=== PATIENT | male | born 1945 ===

== ENCOUNTER 2020-07-07 18:22 | Inpatient (IN) | payer MEDICARE ==
[2020-07-07] MEDS ORDERED: MELATONIN 5 MG TAB PO PRN (21:21)
[2020-07-07] MEDS: OMEGA-3 FATTY ACIDS/FISH OIL 1 GRAM CAP PO SCH (23:54)
[2020-07-07] MEDS: traZODone 50 MG TAB PO SCH (23:54)
--- NOTE | 2020-07-08 08:16 | History and Physical Report ---
GP History & Physical - History of Present Illness Date of admission: 07/08/20 Date of Examination: 07/08/20 Reason for Admission: Danger to self, Severe anxiety/depression History of Present Illness: HPI Patient has dysarthria hence difficulty to understand, patient is a 74-year-old, retired male with past psychiatric history of depression and has past medical history of hypertension, JULIA, diabetes, spinocerebellar ataxia type I and chronic pain who presented to another hospital [facility] with chief complaint of suicidal examination. Patient reported his been have suicidal thoughts for several months, but does not wish to elaborate at the other facility. Today patient reports that he has been feeling depressed but is not suicidal, reported at age of 67 who was diagnosed with an incurable disease that only one provider in [place] knows how to manage, report most of his mental health problems is due to his medical issues but denies wanting to kill self or hurt self. PAST PSYCHIATRIC HISTORY: Diagnoses: Depression Suicide attempts or Self-harm behavior Prior psychiatric hospitalizations Substance Abuse history: Previous psychiatric medications tried: Yes Outpatient treatment: Yes PAST MEDICAL HISTORY: Type 2 diabetes, CAD, hypertension, JULIA, spinocerebellar ataxia type I Family Psychiatric History: None reported or documented SOCIAL HISTORY Marital Status: Living Arrangements: With Employment Status: Retired Access to guns/weapons: yes at home Education: History of Abuse: none reported Legal History: guero REVIEW OF SYSTEMS Constitutional: Negative for weight loss ENT: Negative for stridor Respiratory: Negative for cough or hemoptysis All other systems reviewed and are negative MENTAL STATUS EXAMINATION General Appearance and Behavior: Age appropriate, good hygiene, wearing appropriate clothes,, good eye contact Cooperation: Participating/engaged, but Guarded Psychomotor Behavior: Psychomotor normal Mood: depressed Affect and affective range: irritable, labile Thought Process: illogical Thought Content: hopelessness, helplessness Speech: Normal rate, volume and rythm Intellectual Functioning: Average Suicidal Ideation: SI Homicidal Ideation: Denies HI Impulse Control: Impaired Insight and Judgment: Limited insight and judgment Memory: Normal Attention: Normal Orientation: Alert, oriented Assessment and Plan - Psychiatric problem (1) MDD (major depressive disorder) Current Visit: Yes Status: Acute f32.9 Treatment Plan We will restart on medication Patient admitted for inpatient psychiatric evaluation, medication adjustment and close monitoring The patient's behavior, mood, sleep and appetite will be closely monitored. Patient enrolled in individual and group therapeutic sessions and encouraged to attend. Patient provided with a safe and structured environment. Patient's physical health needs will be addressed by the Hospitalist. Hospitalist Consulted Labs including CBC, CMP, Lipid profile and Hemoglobin A1C levels ordered for baseline reference Social Assessment will be completed and the Centrifugal Extractor Operator will work with patient and family to ensure a suitable and safe disposition Medication adjustment will be made as clinically indicated Usual Wellness Mu-Ism/Preservation: - Start Trazodone 50 mg po QHS & 50 mg po QHS PRN between 10 PM & 2 AM for insomnia - Start Melatonin 5 mg po QHS to promote circadian rhythm - Start [place]-3 for brain health, reduce impulsivity, and as adjunctive treatment for mood disorder, continue upon discharge given overall benefits. - Start B1 prophylaxis with 200 mg po for 5 days The patient agreed on the treatment plan, understood the risk, benefit, alternative treatment, potential consequence of no treatment, and gave informed consent. Initial Certification Inpatient psych services: I certify that the inpatient psychiatric services are required for treatment that could reasonably be expected to improve the patient's condition. Estimated days: 7 Post hospital care: primary care provider, psychiatric provider Legal Status: Voluntary Patient Problems: Current Active Problems MDD (major depressive disorder) (Acute) Reaction to Hospitalization: Accepting Medications and Allergies Allergies Allergy/AdvReac Type Severity Reaction Status Date / Time No Known Allergies Allergy Verified 07/07/20 18:26 Home Medications Medication Instructions Recorded Confirmed Last Taken Type ALPRAZolam [Xanax TAB] 0.25 mg PO Q6HR PRN 07/08/20 07/08/20 Unknown History Aspirin [Adult Aspirin] 81 mg PO DAILY 07/08/20 07/08/20 Unknown History Atorvastatin [Lipitor] 40 mg PO HS 07/08/20 07/08/20 Unknown History Cyanocobalamin (Vitamin B-12) 1,000 mcg PO DAILY 07/08/20 07/08/20 Unknown History [Vitamin B-12] Ergocalciferol [Vitamin D2] 50,000 units PO QWEEK 07/08/20 07/08/20 Unknown History FLUoxetine [PROzac] 10 mg PO BID 07/08/20 07/08/20 Unknown History Glimepiride [Amaryl] 2 mg PO DAILY 07/08/20 07/08/20 Unknown History Metoprolol Xl [Metoprolol 25 mg PO Q48HR 07/08/20 07/08/20 Unknown History SUCCINATE ER TAB] Multivitamin Tab [Multiple Vitamin 1 tab PO DAILY 07/08/20 07/08/20 Unknown History TAB (Theragran)] Ropinirole HCl [rOPINIRole ER] 8 mg PO HS 07/08/20 07/08/20 Unknown History Vitamin E 1,000 mg PO DAILY 07/08/20 07/08/20 Unknown History Zolpidem [Ambien] 5 mg PO QHS PRN 07/08/20 07/08/20 Unknown History donepeziL [Aricept] 10 mg PO QHS 07/08/20 07/08/20 Unknown History hydroCHLOROthiazide [HCTZ] 25 mg PO DAILY 07/08/20 07/08/20 Unknown History metFORMIN XR [Glucophage XR] 500 mg PO BID 07/08/20 07/08/20 Unknown History oxyCODONE /ACETAMINOPHEN [Percocet 5 mg PO Q6HR PRN 07/08/20 07/08/20 Unknown History 5/325 mg] Active Meds: Active Medications Fish Oil ([place]-3 Fatty Acids/Fish Oil 1 Gram Cap) 2,000 mg PO BID [facility] Last Admin: 07/07/20 23:54 Dose: Not Given Documented by: Melatonin (Melatonin 5 Mg Tab) 5 mg PO QHS PRN PRN Reason: Sleep Trazodone HCl (Trazodone 50 Mg Tab) 50 mg PO QHS [facility] Last Admin: 07/07/20 23:54 Dose: Not Given Documented by: Results - Results Labs/Vitals: Laboratory Last Values POC Glucose 83 mg/dL (70-105) 07/08/20 05:57 Last Vital Signs Temp 98.8 F 07/07/20 23:05 Pulse 61 07/07/20 23:05 Resp 16 07/07/20 23:05 BP 117/58 07/07/20 23:05 Pulse Ox 93 07/07/20 23:05 Physical Examination - Constitutional Vitals: Vital Signs Temp Pulse Resp BP Pulse Ox 98.8 F 61 16 117/58 93 07/07/20 23:05 07/07/20 23:05 07/07/20 23:05 07/07/20 23:05 07/07/20 23:05 Temperature -Last 24 Hours Temperature 98.8 F Mental Status Exam - Vital signs Last Vital Signs Temp 98.8 F 07/07/20 23:05 Pulse 61 07/07/20 23:05 Resp 16 07/07/20 23:05 BP 117/58 07/07/20 23:05 Pulse Ox 93 07/07/20 23:05 Assessment and Plan - Psychiatric problem (1) MDD (major depressive disorder) Current Visit: Yes Status: Acute Physician Certification - Certification Statement Physician Certification Statement: This is an acknowledgement statement that RAFIQ GOMEZ is a 74 year old M who requires inpatient psychiatric admission for treatment which could reasonably be expected to improve the patient's condition for Estimated period of time patient will need to remain in the hospital: [ ] Plan for post-hospital care: [ ]
[2020-07-08] MEDS ORDERED: ALPRAZolam 0.25 MG TAB PO PRN (09:00)
[2020-07-08] MEDS: OMEGA-3 FATTY ACIDS/FISH OIL 1 GRAM CAP PO SCH ×3 (09:16→22:05)
[2020-07-08 09:29] LABS: Basophils % (Auto) 0.1 % (0.0-1.8); Eosinophils # (Auto) 0.1 K/mm3 (0.0-0.4); Eosinophils % (Auto) 1.3 % (0.0-4.3); Hematocrit 44.3 % (35.5-45.6); Hemoglobin 15.3 gm/dl (11.8-15.2); Lymphocytes # (Auto) 1.6 K/mm3 (1.2-5.4); Lymphocytes % (Auto) 18.5 % (13.4-35.0); Mean Corpuscular HGB Conc 35 % (32-34); Mean Corpuscular Volume 92 fl (84-94); Monocytes # (Auto) 0.7 K/mm3 (0.0-0.8); Monocytes % (Auto) 8.1 % (0.0-7.3); Platelet Count 207 K/mm3 (140-440); Red Blood Count 4.82 M/mm3 (3.65-5.03); Red Cell Distribution Width 13.6 % (13.2-15.2)
[2020-07-08 09:46] LABS: Alanine Aminotransferase 35 units/L (7-56); Albumin 3.8 g/dL (3.9-5); BUN/Creatinine Ratio 16; Blood Urea Nitrogen 14 mg/dL (9-20); HDL Cholesterol 38 mg/dL (40-59); Hemolysis Index 4; LDL Cholesterol,Direct 55 mg/dL (50-130)
[2020-07-08] MEDS ORDERED: FLUoxetine 10 MG TAB PO SCH (10:00)
--- NOTE | 2020-07-08 15:16 | Consultation ---
History of Present Illness - Reason for Consult Consult date: 07/08/20 Management of medical conditions - History of Present Illness As per lisa. He is [id number], retired male with past psychiatric history of depression and has past medical history of hypertension, JULIA, diabetes, spinocerebellar ataxia type I and chronic pain who presented to another [facility] with chief complaint of suicidal examination. Patient reported his been have suicidal thoughts for several months, but does not wish to elaborate at the other facility. Today patient reports that he has been feeling depressed but is not suicidal, reported at age of 67 who was diagnosed with an incurable disease that only one provider in [place] knows how to manage, report most of his mental health problems is due to his medical issues but denies wanting to kill self or hurt self. Now admitted to psych unit for management. Home medications reviewed. Labs reviewed. Past History Past Medical History: diabetes, hypertension, other (JULIA) Medications and Allergies Allergies Allergy/AdvReac Type Severity Reaction Status Date / Time No Known Allergies Allergy Verified 07/07/20 18:26 Home Medications Medication Instructions Recorded Confirmed Last Taken Type ALPRAZolam [Xanax TAB] 0.25 mg PO Q6HR PRN 07/08/20 07/08/20 Unknown History Aspirin [Adult Aspirin] 81 mg PO DAILY 07/08/20 07/08/20 Unknown History Atorvastatin [Lipitor] 40 mg PO HS 07/08/20 07/08/20 Unknown History Cyanocobalamin (Vitamin B-12) 1,000 mcg PO DAILY 07/08/20 07/08/20 Unknown History [Vitamin B-12] Ergocalciferol [Vitamin D2] 50,000 units PO QWEEK 07/08/20 07/08/20 07/02/20 10:00 History FLUoxetine [PROzac] 10 mg PO BID 07/08/20 07/08/20 Unknown History Glimepiride [Amaryl] 2 mg PO DAILY 07/08/20 07/08/20 Unknown History Metoprolol Xl [Metoprolol 25 mg PO Q48HR 07/08/20 07/08/20 Unknown History SUCCINATE ER TAB] Multivitamin Tab [Multiple Vitamin 1 tab PO DAILY 07/08/20 07/08/20 Unknown History TAB (Theragran)] Ropinirole HCl [rOPINIRole ER] 8 mg PO HS 07/08/20 07/08/20 Unknown History Vitamin E 400 unit PO QDAY 07/08/20 07/08/20 Unknown History Zolpidem [Ambien] 5 mg PO QHS PRN 07/08/20 07/08/20 Unknown History donepeziL [Aricept] 10 mg PO QHS 07/08/20 07/08/20 Unknown History hydroCHLOROthiazide [HCTZ] 25 mg PO DAILY 07/08/20 07/08/20 Unknown History metFORMIN XR [Glucophage XR] 500 mg PO BID 07/08/20 07/08/20 Unknown History oxyCODONE /ACETAMINOPHEN [Percocet 5 mg PO Q6HR PRN 07/08/20 07/08/20 Unknown History 5/325 mg] Active Meds: Active Medications Alprazolam (Alprazolam 0.25 Mg Tab) 0.25 mg PO Q6H PRN PRN Reason: Anxiety Donepezil HCl (Donepezil 10 Mg Tab) 10 mg PO QHS [facility] Fish Oil ([place]-3 Fatty Acids/Fish Oil 1 Gram Cap) 2,000 mg PO BID [facility] Last Admin: 07/08/20 09:16 Dose: 2,000 mg Documented by: Fluoxetine HCl (Fluoxetine 10 Mg Tab) 10 mg PO DAILY [facility] Last Admin: 07/08/20 09:16 Dose: 10 mg Documented by: Melatonin (Melatonin 5 Mg Tab) 5 mg PO QHS PRN PRN Reason: Sleep Ropinirole HCl (Ropinirole 1 Mg Tab) 4 mg PO BID [facility] Trazodone HCl (Trazodone 50 Mg Tab) 50 mg PO QHS [facility] Last Admin: 07/07/20 23:54 Dose: Not Given Documented by: Review of Systems All systems: negative Exam - Constitutional Vitals: Temp Pulse Resp BP Pulse Ox 97.8 F 63 15 117/62 91 07/08/20 07:01 07/08/20 07:01 07/08/20 07:01 07/08/20 07:01 07/08/20 07:01 General appearance: Present: no acute distress, well-nourished - EENT Eyes: Present: PERRL ENT: hearing intact, clear oral mucosa - Neck Neck: Present: supple, normal ROM - Respiratory Respiratory effort: normal Respiratory: bilateral: CTA - Cardiovascular Heart Sounds: Present: S1 & S2. Absent: rub, click - Extremities Extremities: pulses symmetrical, No edema Peripheral Pulses: within normal limits - Abdominal General gastrointestinal: Present: soft, non-tender, non-distended, normal bowel sounds Male genitourinary: Present: normal - Integumentary Integumentary: Present: clear, warm, dry - Musculoskeletal Musculoskeletal: gait normal, strength equal bilaterally - Psychiatric Psychiatric: appropriate mood/affect, intact judgment & insight - Neurologic Neurologic: CNII-XII intact, moves all extremities Results - Labs CBC & Chem 7: 07/08/20 08:52 07/08/20 08:52 Labs: Abnormal lab results 07/08/20 07/08/20 07/08/20 Range/Units 08:52 08:52 08:52 Hgb 15.3 H (11.8-15.2) gm/dl MCHC 35 H (32-34) % [place] % (Auto) 8.1 H (0.0-7.3) % Seg Neutrophils % 72.0 H (40.0-70.0) % Sodium 136 L (137-145) mmol/L Glucose 177 H (75-100) mg/dL POC Glucose (70-105) mg/dL Hemoglobin A1c 6.7 H (4-6) % Albumin 3.8 L (3.9-5) g/dL Triglycerides 319 H (2-149) mg/dL HDL Cholesterol 38 L (40-59) mg/dL Vitamin B12 (211-911) pg/mL 07/08/20 07/08/20 Range/Units 08:52 10:42 Hgb (11.8-15.2) gm/dl MCHC (32-34) % [place] % (Auto) (0.0-7.3) % Seg Neutrophils % (40.0-70.0) % Sodium (137-145) mmol/L Glucose (75-100) mg/dL POC Glucose 194 H (70-105) mg/dL Hemoglobin A1c (4-6) % Albumin (3.9-5) g/dL Triglycerides (2-149) mg/dL HDL Cholesterol (40-59) mg/dL Vitamin B12 1097 H (211-911) pg/mL Assessment and Plan - Patient Problems (1) MDD (major depressive disorder) Current Visit: Yes Status: Acute Plan to address problem: Management as per psych (2) Hypertension Current Visit: Yes Status: Acute Plan to address problem: Monitor BP for now. (3) Diabetes mellitus Current Visit: Yes Status: Acute Plan to address problem: Hemoglobin A1c 6.7 Metformin 500 mg BID Hold glimepiride. Start on sliding scale insulin Diabetic diet (4) Morbid obesity Current Visit: Yes Status: Acute Plan to address problem: Diet and exercise advised
[2020-07-08] MEDS ORDERED: DEXTROSE 50% IN WATER (25GM) 50 ML SYRINGE IV PRN (15:17)
[2020-07-08] MEDS: INSULIN LISPRO 100 UNIT/ML SUB-Q SCH (16:20)
[2020-07-08] MEDS: rOPINIRole 1 MG TAB PO SCH (21:39)
[2020-07-08] MEDS: DONEPEZIL 10 MG TAB PO SCH (21:41)
[2020-07-08] MEDS: traZODone 50 MG TAB PO SCH (21:41)
[2020-07-08] MEDS ORDERED: metFORMIN XR 500MG TAB PO SCH (22:00)
[2020-07-08] MEDS ORDERED: ROPINIROLE HCL 6 MG PO SCH (22:00)
[2020-07-09] MEDS: INSULIN LISPRO 100 UNIT/ML SUB-Q SCH ×5 (03:55→22:11)
[2020-07-09] MEDS: metFORMIN XR 500MG TAB PO SCH ×2 (08:10→16:56)
--- NOTE | 2020-07-09 08:45 | Progress Note ---
Subjective Date of service: 07/09/20 Principal diagnosis: Major Depressive Disorder Subjective Comment: The patient was seen today. He is sitting in the dayroom. His speech is difficult to understand at times. He says he was admitted to [facility] for depression and suicidal thoughts. When asked about SI/HI, the patient did not initially answer, he replied "I want to go home." When asking the patient again he says, "no, I'm not. I'm not," but does verbalize some depression. He denies hallucinations of any kind. Reason for continued inpatient treatment: The patient was admitted for depression, SI for past two months and also expressed upon admission. Per documentation, the states the patient has also been noncompliant with his medication. The patient seems to say what he needs to say in order to get discharged. I feel it is safe to treat and monitor the patient a little longer to ensue medication compliance, and his safety upon discharge. REVIEW OF SYSTEMS Constitutional: Negative for weight loss ENT: Negative for stridor Respiratory: Negative for cough or hemoptysis All other systems reviewed and are negative MENTAL STATUS EXAMINATION General Appearance and Behavior: Age appropriate, good hygiene, wearing appropriate clothes, good eye contact Cooperation: Participating/engaged, but Guarded Psychomotor Behavior: Psychomotor normal Mood: depressed Affect and affective range: restricted Thought Process: goal directed Thought Content: None Speech: Normal rate, volume and rhythm Suicidal Ideation: Denies Homicidal Ideation: Denies Hallucinations: denies Delusions: None elicited Impulse Control: Impaired Insight and Judgment: Limited insight and judgment Memory: Normal Attention: Normal Orientation: Alert, oriented Assessment and Plan (1) MDD (major depressive disorder) Current Visit: Yes Status: Acute f32.9 Treatment Plan Patient admitted for inpatient psychiatric evaluation, medication adjustment and close monitoring The patient's behavior, mood, sleep and appetite will be closely monitored. Patient enrolled in individual and group therapeutic sessions and encouraged to attend. Patient provided with a safe and structured environment. Patient's physical health needs will be addressed by the Hospitalist. Hospitalist Consulted Labs including CBC, CMP, Lipid profile and Hemoglobin A1C levels ordered for baseline reference Social Assessment will be completed and the Youth Officer will work with patient and family to ensure a suitable and safe disposition Medication adjustment will be made as clinically indicated Increased Prozac 20mg po daily Usual Wellness [facility]an/Preservation: - Start Trazodone 50 mg po QHS & 50 mg po QHS PRN between 10 PM & 2 AM for insomnia - Start Melatonin 5 mg po QHS to promote circadian rhythm - Start [place]-3 for brain health, reduce impulsivity, and as adjunctive treatment for mood disorder, continue upon discharge given overall benefits. - Start B1 prophylaxis with 200 mg po for 5 days The patient agreed on the treatment plan, understood the risk, benefit, alternative treatment, potential consequence of no treatment, and gave informed consent. Estimated days: 7 Post hospital care: primary care provider, psychiatric provider Medications and Allergies Allergies Allergy/AdvReac Type Severity Reaction Status Date / Time No Known Allergies Allergy Verified 07/07/20 18:26 Home Medications Medication Instructions Recorded Confirmed Last Taken Type ALPRAZolam [Xanax TAB] 0.25 mg PO Q6HR PRN 07/08/20 07/08/20 Unknown History Aspirin [Adult Aspirin] 81 mg PO DAILY 07/08/20 07/08/20 Unknown History Atorvastatin [Lipitor] 40 mg PO HS 07/08/20 07/08/20 Unknown History Cyanocobalamin (Vitamin B-12) 1,000 mcg PO DAILY 07/08/20 07/08/20 Unknown History [Vitamin B-12] Ergocalciferol [Vitamin D2] 50,000 units PO QWEEK 07/08/20 07/08/20 07/02/20 10:00 History FLUoxetine [PROzac] 10 mg PO BID 07/08/20 07/08/20 Unknown History Glimepiride [Amaryl] 2 mg PO DAILY 07/08/20 07/08/20 Unknown History Metoprolol Xl [Metoprolol 25 mg PO Q48HR 07/08/20 07/08/20 Unknown History SUCCINATE ER TAB] Multivitamin Tab [Multiple Vitamin 1 tab PO DAILY 07/08/20 07/08/20 Unknown History TAB (Theragran)] Ropinirole HCl [rOPINIRole ER] 8 mg PO HS 07/08/20 07/08/20 Unknown History Vitamin E 400 unit PO QDAY 07/08/20 07/08/20 Unknown History Zolpidem [Ambien] 5 mg PO QHS PRN 07/08/20 07/08/20 Unknown History donepeziL [Aricept] 10 mg PO QHS 07/08/20 07/08/20 Unknown History hydroCHLOROthiazide [HCTZ] 25 mg PO DAILY 07/08/20 07/08/20 Unknown History metFORMIN XR [Glucophage XR] 500 mg PO BID 07/08/20 07/08/20 Unknown History oxyCODONE /ACETAMINOPHEN [Percocet 5 mg PO Q6HR PRN 07/08/20 07/08/20 Unknown History 5/325 mg] Active Meds: Active Medications Alprazolam (Alprazolam 0.25 Mg Tab) 0.25 mg PO Q6H PRN PRN Reason: Anxiety Last Admin: 07/08/20 21:39 Dose: 0.25 mg Documented by: Aspirin (Aspirin Ec 81 Mg Tab) 81 mg PO DAILY [facility] Atorvastatin Calcium (Atorvastatin 40 Mg Tab) 40 mg PO HS [facility] Last Admin: 07/08/20 21:40 Dose: 40 mg Documented by: Cyanocobalamin (Cyanocobalamin (Vit B-12) 1000 Mcg Tab) 1,000 mcg PO DAILY [facility] Dextrose (Dextrose 50% In Water (25gm) 50 Ml Syringe) 50 ml IV Q30MIN PRN; Protocol PRN Reason: Hypoglycemia Donepezil HCl (Donepezil 10 Mg Tab) 10 mg PO QHS [facility] Last Admin: 07/08/20 21:41 Dose: 10 mg Documented by: Fish Oil ([place]-3 Fatty Acids/Fish Oil 1 Gram Cap) 2,000 mg PO BID [facility] Last Admin: 07/08/20 22:05 Dose: Not Given Documented by: Fluoxetine HCl (Fluoxetine 10 Mg Tab) 10 mg PO DAILY [facility] Last Admin: 07/08/20 09:16 Dose: 10 mg Documented by: Insulin Human Lispro (Insulin Lispro 100 Unit/Ml) 0 unit SUB-Q ACHS [facility]; Protocol Last Admin: 07/09/20 07:56 Dose: Not Given Documented by: Melatonin (Melatonin 5 Mg Tab) 5 mg PO QHS PRN PRN Reason: Sleep Last Admin: 07/08/20 21:41 Dose: 5 mg Documented by: Metformin HCl (Metformin Xr 500mg Tab) 500 mg PO BIDDIAB [facility] Metoprolol Succinate (Metoprolol Succinate Xl 25 Mg Tab) 25 mg PO Q48HR [facility] Ropinirole HCl (Ropinirole 1 Mg Tab) 4 mg PO BID [facility] Last Admin: 07/08/20 21:39 Dose: 4 mg Documented by: Trazodone HCl (Trazodone 50 Mg Tab) 50 mg PO QHS [facility] Last Admin: 07/08/20 21:41 Dose: 50 mg Documented by: Results - Results Labs/Vitals: Laboratory Last Values WBC 8.5 K/mm3 (4.5-11.0) 07/08/20 08:52 RBC 4.82 M/mm3 (3.65-5.03) 07/08/20 08:52 Hgb 15.3 gm/dl (11.8-15.2) H 07/08/20 08:52 Hct 44.3 % (35.5-45.6) 07/08/20 08:52 MCV 92 fl (84-94) 07/08/20 08:52 MCH 32 pg (28-32) 07/08/20 08:52 MCHC 35 % (32-34) H 07/08/20 08:52 RDW 13.6 % (13.2-15.2) 07/08/20 08:52 Plt Count 207 K/mm3 (140-440) 07/08/20 08:52 Lymph % (Auto) 18.5 % (13.4-35.0) 07/08/20 08:52 [place] % (Auto) 8.1 % (0.0-7.3) H 07/08/20 08:52 Eos % (Auto) 1.3 % (0.0-4.3) 07/08/20 08:52 Baso % (Auto) 0.1 % (0.0-1.8) 07/08/20 08:52 Lymph # (Auto) 1.6 K/mm3 (1.2-5.4) 07/08/20 08:52 [place] # (Auto) 0.7 K/mm3 (0.0-0.8) 07/08/20 08:52 Eos # (Auto) 0.1 K/mm3 (0.0-0.4) 07/08/20 08:52 Baso # (Auto) 0.0 K/mm3 (0.0-0.1) 07/08/20 08:52 Seg Neutrophils % 72.0 % (40.0-70.0) H 07/08/20 08:52 Seg Neutrophils # 6.1 K/mm3 (1.8-7.7) 07/08/20 08:52 Sodium 136 mmol/L (137-145) L 07/08/20 08:52 Potassium 4.6 mmol/L (3.6-5.0) 07/08/20 08:52 Chloride 98.8 mmol/L (98-107) 07/08/20 08:52 Carbon Dioxide 29 mmol/L (22-30) 07/08/20 08:52 Anion Gap 13 mmol/L 07/08/20 08:52 BUN 14 mg/dL (9-20) 07/08/20 08:52 Creatinine 0.9 mg/dL (0.8-1.3) 07/08/20 08:52 Estimated GFR > 60 ml/min 07/08/20 08:52 BUN/Creatinine Ratio 16 % 07/08/20 08:52 Glucose 177 mg/dL (75-100) H 07/08/20 08:52 POC Glucose 117 mg/dL (70-105) H 07/08/20 22:31 Hemoglobin A1c 6.7 % (4-6) H 07/08/20 08:52 Calcium 9.0 mg/dL (8.4-10.2) 07/08/20 08:52 Total Bilirubin 0.60 mg/dL (0.1-1.2) 07/08/20 08:52 AST 28 units/L (5-40) 07/08/20 08:52 ALT 35 units/L (7-56) 07/08/20 08:52 Alkaline Phosphatase 79 units/L (35-129) 07/08/20 08:52 Total Protein 6.9 g/dL (6.3-8.2) 07/08/20 08:52 Albumin 3.8 g/dL (3.9-5) L 07/08/20 08:52 Albumin/Globulin Ratio 1.2 % 07/08/20 08:52 Triglycerides 319 mg/dL (2-149) H 07/08/20 08:52 Cholesterol 118 mg/dL (50-199) 07/08/20 08:52 LDL Cholesterol Direct 55 mg/dL (50-130) 07/08/20 08:52 HDL Cholesterol 38 mg/dL (40-59) L 07/08/20 08:52 Cholesterol/HDL Ratio 3.10 % 07/08/20 08:52 Vitamin B12 1097 pg/mL (211-911) H 07/08/20 08:52 TSH 1.390 mlU/mL (0.270-4.200) 07/08/20 08:52 Last Vital Signs Temp 97.5 F L 07/08/20 20:27 Pulse 85 07/08/20 20:27 Resp 16 07/08/20 20:27 BP 119/52 07/08/20 20:27 Pulse Ox 95 07/08/20 20:27
[2020-07-09] MEDS: CYANOCOBALAMIN (VIT B-12) 1000 MCG TAB PO SCH (09:51)
[2020-07-09] MEDS: FLUoxetine 20 MG CAP PO SCH (09:51)
[2020-07-09] MEDS: ASPIRIN EC 81 MG TAB PO SCH (09:51)
[2020-07-09] MEDS: rOPINIRole 1 MG TAB PO SCH ×3 (09:51→21:57)
[2020-07-09] MEDS: OMEGA-3 FATTY ACIDS/FISH OIL 1 GRAM CAP PO SCH ×3 (09:54→21:58)
[2020-07-09] MEDS ORDERED: MULTIVITAMINS ,THERAPEUTIC TAB PO SCH (14:00)
[2020-07-09] MEDS: GLIMEPIRIDE 2 MG TAB PO SCH (14:01)
[2020-07-09] MEDS: DONEPEZIL 10 MG TAB PO SCH ×2 (21:45→21:57)
[2020-07-09] MEDS: traZODone 50 MG TAB PO SCH ×2 (21:45→21:57)
[2020-07-10] MEDS ORDERED: ZOLPIDEM 5 MG TAB PO PRN (08:25)
--- NOTE | 2020-07-10 08:27 | Progress Note ---
Subjective Date of service: 07/10/20 Principal diagnosis: Major Depressive Disorder Subjective Comment: The patient was seen today. He is lying in bed awake. He says he didn't sleep well last night. He says he feels "fine" when asked. He denies SI/HI or hallucinations. The patient is asking about going home. Informed the patient that we wanted to make sure that he would remain safe upon his discharge, he says "I'll be safe." Reason for continued inpatient treatment: The patient was admitted for depression, SI for past two months and also expressed upon admission. Per documentation, the states the patient has also been noncompliant with his medication. The patient seems to say what he needs to say in order to get discharged. I feel it is safe to treat and monitor the patient a little longer to ensue medication compliance, and his safety upon discharge. REVIEW OF SYSTEMS Constitutional: Negative for weight loss ENT: Negative for stridor Respiratory: Negative for cough or hemoptysis All other systems reviewed and are negative MENTAL STATUS EXAMINATION General Appearance and Behavior: Age appropriate, good hygiene, wearing appropriate clothes, good eye contact Cooperation: Participating/engaged, but Guarded Psychomotor Behavior: Psychomotor normal Mood: depressed Affect and affective range: restricted Thought Process: goal directed Thought Content: None Speech: Normal rate, volume and rhythm Suicidal Ideation: Denies Homicidal Ideation: Denies Hallucinations: denies Delusions: None elicited Impulse Control: Impaired Insight and Judgment: Limited insight and judgment Memory: Normal Attention: Normal Orientation: Alert, oriented Assessment and Plan (1) MDD (major depressive disorder) Current Visit: Yes Status: Acute f32.9 Treatment Plan Patient admitted for inpatient psychiatric evaluation, medication adjustment and close monitoring The patient's behavior, mood, sleep and appetite will be closely monitored. Patient enrolled in individual and group therapeutic sessions and encouraged to attend. Patient provided with a safe and structured environment. Patient's physical health needs will be addressed by the Hospitalist. Hospitalist Consulted Labs including CBC, CMP, Lipid profile and Hemoglobin A1C levels ordered for baseline reference Social Assessment will be completed and the Cement Conveyor Operator will work with patient and family to ensure a suitable and safe disposition Medication adjustment will be made as clinically indicated Increased Prozac 20mg po daily yesterday Restarted home Ambien 5mg po qhs today Usual Wellness Denominational/Preservation: - Start Trazodone 50 mg po QHS & 50 mg po QHS PRN between 10 PM & 2 AM for insomnia - Start Melatonin 5 mg po QHS to promote circadian rhythm - Start [place]-3 for brain health, reduce impulsivity, and as adjunctive treatment for mood disorder, continue upon discharge given overall benefits. - Start B1 prophylaxis with 200 mg po for 5 days The patient agreed on the treatment plan, understood the risk, benefit, alternative treatment, potential consequence of no treatment, and gave informed consent. Estimated days: 4 Post hospital care: primary care provider, psychiatric provider Medications and Allergies Allergies Allergy/AdvReac Type Severity Reaction Status Date / Time No Known Allergies Allergy Verified 07/07/20 18:26 Home Medications Medication Instructions Recorded Confirmed Last Taken Type ALPRAZolam [Xanax TAB] 0.25 mg PO Q6HR PRN 07/08/20 07/08/20 Unknown History Aspirin [Adult Aspirin] 81 mg PO DAILY 07/08/20 07/08/20 Unknown History Atorvastatin [Lipitor] 40 mg PO HS 07/08/20 07/08/20 Unknown History Cyanocobalamin (Vitamin B-12) 1,000 mcg PO DAILY 07/08/20 07/08/20 Unknown History [Vitamin B-12] Ergocalciferol [Vitamin D2] 50,000 units PO QWEEK 07/08/20 07/08/20 07/02/20 10:00 History FLUoxetine [PROzac] 10 mg PO BID 07/08/20 07/08/20 Unknown History Glimepiride [Amaryl] 2 mg PO DAILY 07/08/20 07/08/20 Unknown History Metoprolol Xl [Metoprolol 25 mg PO Q48HR 07/08/20 07/08/20 Unknown History SUCCINATE ER TAB] Multivitamin Tab [Multiple Vitamin 1 tab PO DAILY 07/08/20 07/08/20 Unknown History TAB (Theragran)] Ropinirole HCl [rOPINIRole ER] 8 mg PO HS 07/08/20 07/08/20 Unknown History Vitamin E 400 unit PO QDAY 07/08/20 07/08/20 Unknown History Zolpidem [Ambien] 5 mg PO QHS PRN 07/08/20 07/08/20 Unknown History donepeziL [Aricept] 10 mg PO QHS 07/08/20 07/08/20 Unknown History hydroCHLOROthiazide [HCTZ] 25 mg PO DAILY 07/08/20 07/08/20 Unknown History metFORMIN XR [Glucophage XR] 500 mg PO BID 07/08/20 07/08/20 Unknown History oxyCODONE /ACETAMINOPHEN [Percocet 5 mg PO Q6HR PRN 07/08/20 07/08/20 Unknown History 5/325 mg] Active Meds: Active Medications Alprazolam (Alprazolam 0.25 Mg Tab) 0.25 mg PO Q6H PRN PRN Reason: Anxiety Last Admin: 07/08/20 21:39 Dose: 0.25 mg Documented by: Aspirin (Aspirin Ec 81 Mg Tab) 81 mg PO DAILY [facility] Last Admin: 07/09/20 09:51 Dose: 81 mg Documented by: Atorvastatin Calcium (Atorvastatin 40 Mg Tab) 40 mg PO HS [facility] Last Admin: 07/09/20 21:45 Dose: Not Given Documented by: Cyanocobalamin (Cyanocobalamin (Vit B-12) 1000 Mcg Tab) 1,000 mcg PO DAILY [facility] Last Admin: 07/09/20 09:51 Dose: 1,000 mcg Documented by: Dextrose (Dextrose 50% In Water (25gm) 50 Ml Syringe) 50 ml IV Q30MIN PRN; Protocol PRN Reason: Hypoglycemia Donepezil HCl (Donepezil 10 Mg Tab) 10 mg PO QHS [facility] Last Admin: 07/09/20 21:45 Dose: Not Given Documented by: Fish Oil ([place]-3 Fatty Acids/Fish Oil 1 Gram Cap) 2,000 mg PO BID [facility] Last Admin: 07/09/20 21:45 Dose: Not Given Documented by: Fluoxetine HCl (Fluoxetine 20 Mg Cap) 20 mg PO QDAY [facility] Last Admin: 07/09/20 09:51 Dose: 20 mg Documented by: Glimepiride (Glimepiride 2 Mg Tab) 2 mg PO DAILY [facility] Last Admin: 07/09/20 14:01 Dose: Not Given Documented by: Hydrochlorothiazide (Hydrochlorothiazide 25 Mg Tab) 25 mg PO DAILY [facility] Insulin Human Lispro (Insulin Lispro 100 Unit/Ml) 0 unit SUB-Q ACHS [facility]; Protocol Last Admin: 07/09/20 22:11 Dose: 2 unit Documented by: Melatonin (Melatonin 5 Mg Tab) 5 mg PO QHS PRN PRN Reason: Sleep Last Admin: 07/08/20 21:41 Dose: 5 mg Documented by: Metformin HCl (Metformin Xr 500mg Tab) 500 mg PO BIDDIAB [facility] Last Admin: 07/09/20 16:56 Dose: 500 mg Documented by: Metoprolol Succinate (Metoprolol Succinate Xl 25 Mg Tab) 25 mg PO Q48HR [facility] Oxycodone/Acetaminophen (Oxycodone /Acetaminophen 5-325mg Tab) 1 tab PO Q6HR PRN PRN Reason: Pain, Moderate (4-6) Ropinirole HCl (Ropinirole 1 Mg Tab) 4 mg PO BID [facility] Last Admin: 07/09/20 21:45 Dose: Not Given Documented by: Trazodone HCl (Trazodone 50 Mg Tab) 50 mg PO QHS [facility] Last Admin: 07/09/20 21:45 Dose: Not Given Documented by: Zolpidem Tartrate (Zolpidem 5 Mg Tab) 5 mg PO QHS PRN PRN Reason: Insomnia Results - Results Labs/Vitals: Laboratory Last Values WBC 8.5 K/mm3 (4.5-11.0) 07/08/20 08:52 RBC 4.82 M/mm3 (3.65-5.03) 07/08/20 08:52 Hgb 15.3 gm/dl (11.8-15.2) H 07/08/20 08:52 Hct 44.3 % (35.5-45.6) 07/08/20 08:52 MCV 92 fl (84-94) 07/08/20 08:52 MCH 32 pg (28-32) 07/08/20 08:52 MCHC 35 % (32-34) H 07/08/20 08:52 RDW 13.6 % (13.2-15.2) 07/08/20 08:52 Plt Count 207 K/mm3 (140-440) 07/08/20 08:52 Lymph % (Auto) 18.5 % (13.4-35.0) 07/08/20 08:52 [place] % (Auto) 8.1 % (0.0-7.3) H 07/08/20 08:52 Eos % (Auto) 1.3 % (0.0-4.3) 07/08/20 08:52 Baso % (Auto) 0.1 % (0.0-1.8) 07/08/20 08:52 Lymph # (Auto) 1.6 K/mm3 (1.2-5.4) 07/08/20 08:52 [place] # (Auto) 0.7 K/mm3 (0.0-0.8) 07/08/20 08:52 Eos # (Auto) 0.1 K/mm3 (0.0-0.4) 07/08/20 08:52 Baso # (Auto) 0.0 K/mm3 (0.0-0.1) 07/08/20 08:52 Seg Neutrophils % 72.0 % (40.0-70.0) H 07/08/20 08:52 Seg Neutrophils # 6.1 K/mm3 (1.8-7.7) 07/08/20 08:52 Sodium 136 mmol/L (137-145) L 07/08/20 08:52 Potassium 4.6 mmol/L (3.6-5.0) 07/08/20 08:52 Chloride 98.8 mmol/L (98-107) 07/08/20 08:52 Carbon Dioxide 29 mmol/L (22-30) 07/08/20 08:52 Anion Gap 13 mmol/L 07/08/20 08:52 BUN 14 mg/dL (9-20) 07/08/20 08:52 Creatinine 0.9 mg/dL (0.8-1.3) 07/08/20 08:52 Estimated GFR > 60 ml/min 07/08/20 08:52 BUN/Creatinine Ratio 16 % 07/08/20 08:52 Glucose 177 mg/dL (75-100) H 07/08/20 08:52 POC Glucose 185 mg/dL (70-105) H 07/09/20 20:03 Hemoglobin A1c 6.7 % (4-6) H 07/08/20 08:52 Calcium 9.0 mg/dL (8.4-10.2) 07/08/20 08:52 Total Bilirubin 0.60 mg/dL (0.1-1.2) 07/08/20 08:52 AST 28 units/L (5-40) 07/08/20 08:52 ALT 35 units/L (7-56) 07/08/20 08:52 Alkaline Phosphatase 79 units/L (35-129) 07/08/20 08:52 Total Protein 6.9 g/dL (6.3-8.2) 07/08/20 08:52 Albumin 3.8 g/dL (3.9-5) L 07/08/20 08:52 Albumin/Globulin Ratio 1.2 % 07/08/20 08:52 Triglycerides 319 mg/dL (2-149) H 07/08/20 08:52 Cholesterol 118 mg/dL (50-199) 07/08/20 08:52 LDL Cholesterol Direct 55 mg/dL (50-130) 07/08/20 08:52 HDL Cholesterol 38 mg/dL (40-59) L 07/08/20 08:52 Cholesterol/HDL Ratio 3.10 % 07/08/20 08:52 Vitamin B12 1097 pg/mL (211-911) H 07/08/20 08:52 TSH 1.390 mlU/mL (0.270-4.200) 07/08/20 08:52 Last Vital Signs Temp 97.6 F 07/09/20 09:00 Pulse 92 H 07/09/20 09:00 Resp 18 07/09/20 09:00 BP 123/62 07/09/20 09:00 Pulse Ox 92 07/09/20 09:00
[2020-07-10] MEDS: metFORMIN XR 500MG TAB PO SCH ×2 (11:15→17:28)
[2020-07-10] MEDS: GLIMEPIRIDE 2 MG TAB PO SCH (11:17)
[2020-07-10] MEDS: OMEGA-3 FATTY ACIDS/FISH OIL 1 GRAM CAP PO SCH ×2 (11:17→21:02)
[2020-07-10] MEDS: ASPIRIN EC 81 MG TAB PO SCH (11:18)
[2020-07-10] MEDS: hydroCHLOROthiazide 25 MG TAB PO SCH (11:18)
[2020-07-10] MEDS: METOPROLOL SUCCINATE XL 25 MG TAB PO SCH (11:19)
[2020-07-10] MEDS: FLUoxetine 20 MG CAP PO SCH (11:22)
[2020-07-10] MEDS: rOPINIRole 1 MG TAB PO SCH ×2 (11:22→21:03)
[2020-07-10] MEDS: CYANOCOBALAMIN (VIT B-12) 1000 MCG TAB PO SCH (11:23)
[2020-07-10] MEDS: INSULIN LISPRO 100 UNIT/ML SUB-Q SCH ×4 (13:13→21:04)
[2020-07-10] MEDS: DONEPEZIL 10 MG TAB PO SCH (21:03)
[2020-07-10] MEDS: traZODone 50 MG TAB PO SCH (21:03)
[2020-07-10] MEDS: oxyCODONE /ACETAMINOPHEN 5-325MG TAB PO PRN (21:03)
[2020-07-11] MEDS: INSULIN LISPRO 100 UNIT/ML SUB-Q SCH ×4 (08:55→21:21)
[2020-07-11] MEDS: metFORMIN XR 500MG TAB PO SCH ×2 (09:30→19:30)
[2020-07-11] MEDS: GLIMEPIRIDE 2 MG TAB PO SCH (09:31)
[2020-07-11] MEDS: ASPIRIN EC 81 MG TAB PO SCH (09:32)
[2020-07-11] MEDS: hydroCHLOROthiazide 25 MG TAB PO SCH (09:32)
[2020-07-11] MEDS: OMEGA-3 FATTY ACIDS/FISH OIL 1 GRAM CAP PO SCH ×2 (09:32→21:19)
[2020-07-11] MEDS: rOPINIRole 1 MG TAB PO SCH ×2 (09:33→21:20)
[2020-07-11] MEDS: FLUoxetine 20 MG CAP PO SCH (09:33)
[2020-07-11] MEDS: CYANOCOBALAMIN (VIT B-12) 1000 MCG TAB PO SCH (09:34)
--- NOTE | 2020-07-11 10:20 | Progress Note ---
Subjective Date of service: 07/11/20 Principal diagnosis: Major Depressive Disorder Subjective Comment: The patient was seen today. He is sitting in the dayroom. He says he slept much better being on his Ambien. He is saying something about an "epidural for pain." He denies SI/HI or hallucinations of any kind. Reason for continued inpatient treatment: The patient was admitted for depression, SI for past two months and also expressed upon admission. Per documentation, the states the patient has also been noncompliant with his medication. The patient seems to say what he needs to say in order to get discharged. I feel it is safe to treat and monitor the patient a little longer to ensue medication compliance, and his safety upon discharge. REVIEW OF SYSTEMS Constitutional: Negative for weight loss ENT: Negative for stridor Respiratory: Negative for cough or hemoptysis All other systems reviewed and are negative MENTAL STATUS EXAMINATION General Appearance and Behavior: Age appropriate, good hygiene, wearing appropriate clothes, good eye contact Cooperation: Participating/engaged, but Guarded Psychomotor Behavior: Psychomotor normal Mood: depressed Affect and affective range: restricted Thought Process: goal directed Thought Content: None Speech: Normal rate, volume and rhythm Suicidal Ideation: Denies Homicidal Ideation: Denies Hallucinations: denies Delusions: None elicited Impulse Control: Impaired Insight and Judgment: Limited insight and judgment Memory: Normal Attention: Normal Orientation: Alert, oriented Assessment and Plan (1) MDD (major depressive disorder) Current Visit: Yes Status: Acute f32.9 Treatment Plan Patient admitted for inpatient psychiatric evaluation, medication adjustment and close monitoring The patient's behavior, mood, sleep and appetite will be closely monitored. Patient enrolled in individual and group therapeutic sessions and encouraged to attend. Patient provided with a safe and structured environment. Patient's physical health needs will be addressed by the Hospitalist. Hospitalist Consulted Labs including CBC, CMP, Lipid profile and Hemoglobin A1C levels ordered for baseline reference Social Assessment will be completed and the Spd Manager will work with patient and family to ensure a suitable and safe disposition Medication adjustment will be made as clinically indicated Restarted home Ambien 5mg po qhs yesterday No changes today Usual Wellness Latter Day/Preservation: - Start Trazodone 50 mg po QHS & 50 mg po QHS PRN between 10 PM & 2 AM for insomnia - Start Melatonin 5 mg po QHS to promote circadian rhythm - Start [place]-3 for brain health, reduce impulsivity, and as adjunctive treatment for mood disorder, continue upon discharge given overall benefits. - Start B1 prophylaxis with 200 mg po for 5 days The patient agreed on the treatment plan, understood the risk, benefit, alternative treatment, potential consequence of no treatment, and gave informed consent. Estimated days: 4 Post hospital care: primary care provider, psychiatric provider Medications and Allergies Allergies Allergy/AdvReac Type Severity Reaction Status Date / Time No Known Allergies Allergy Verified 07/07/20 18:26 Home Medications Medication Instructions Recorded Confirmed Last Taken Type ALPRAZolam [Xanax TAB] 0.25 mg PO Q6HR PRN 07/08/20 07/08/20 Unknown History Aspirin [Adult Aspirin] 81 mg PO DAILY 07/08/20 07/08/20 Unknown History Atorvastatin [Lipitor] 40 mg PO HS 07/08/20 07/08/20 Unknown History Cyanocobalamin (Vitamin B-12) 1,000 mcg PO DAILY 07/08/20 07/08/20 Unknown History [Vitamin B-12] Ergocalciferol [Vitamin D2] 50,000 units PO QWEEK 07/08/20 07/08/20 07/02/20 10:00 History FLUoxetine [PROzac] 10 mg PO BID 07/08/20 07/08/20 Unknown History Glimepiride [Amaryl] 2 mg PO DAILY 07/08/20 07/08/20 Unknown History Metoprolol Xl [Metoprolol 25 mg PO Q48HR 07/08/20 07/08/20 Unknown History SUCCINATE ER TAB] Multivitamin Tab [Multiple Vitamin 1 tab PO DAILY 07/08/20 07/08/20 Unknown History TAB (Theragran)] Ropinirole HCl [rOPINIRole ER] 8 mg PO HS 07/08/20 07/08/20 Unknown History Vitamin E 400 unit PO QDAY 07/08/20 07/08/20 Unknown History Zolpidem [Ambien] 5 mg PO QHS PRN 07/08/20 07/08/20 Unknown History donepeziL [Aricept] 10 mg PO QHS 07/08/20 07/08/20 Unknown History hydroCHLOROthiazide [HCTZ] 25 mg PO DAILY 07/08/20 07/08/20 Unknown History metFORMIN XR [Glucophage XR] 500 mg PO BID 07/08/20 07/08/20 Unknown History oxyCODONE /ACETAMINOPHEN [Percocet 5 mg PO Q6HR PRN 07/08/20 07/08/20 Unknown History 5/325 mg] Active Meds: Active Medications Alprazolam (Alprazolam 0.25 Mg Tab) 0.25 mg PO Q6H PRN PRN Reason: Anxiety Last Admin: 07/08/20 21:39 Dose: 0.25 mg Documented by: Aspirin (Aspirin Ec 81 Mg Tab) 81 mg PO DAILY [facility] Last Admin: 07/11/20 09:32 Dose: 81 mg Documented by: Atorvastatin Calcium (Atorvastatin 40 Mg Tab) 40 mg PO HS [facility] Last Admin: 07/10/20 21:02 Dose: 40 mg Documented by: Cyanocobalamin (Cyanocobalamin (Vit B-12) 1000 Mcg Tab) 1,000 mcg PO DAILY [facility] Last Admin: 07/11/20 09:34 Dose: 1,000 mcg Documented by: Dextrose (Dextrose 50% In Water (25gm) 50 Ml Syringe) 50 ml IV Q30MIN PRN; Protocol PRN Reason: Hypoglycemia Donepezil HCl (Donepezil 10 Mg Tab) 10 mg PO QHS [facility] Last Admin: 07/10/20 21:03 Dose: 10 mg Documented by: Fish Oil ([place]-3 Fatty Acids/Fish Oil 1 Gram Cap) 2,000 mg PO BID [facility] Last Admin: 07/11/20 09:32 Dose: 2,000 mg Documented by: Fluoxetine HCl (Fluoxetine 20 Mg Cap) 20 mg PO QDAY [facility] Last Admin: 07/11/20 09:33 Dose: 20 mg Documented by: Glimepiride (Glimepiride 2 Mg Tab) 2 mg PO DAILY [facility] Last Admin: 07/11/20 09:31 Dose: 2 mg Documented by: Hydrochlorothiazide (Hydrochlorothiazide 25 Mg Tab) 25 mg PO DAILY [facility] Last Admin: 07/11/20 09:32 Dose: 25 mg Documented by: Insulin Human Lispro (Insulin Lispro 100 Unit/Ml) 0 unit SUB-Q ACHS [facility]; Protocol Last Admin: 07/11/20 08:55 Dose: Not Given Documented by: Melatonin (Melatonin 5 Mg Tab) 5 mg PO QHS PRN PRN Reason: Sleep Last Admin: 07/08/20 21:41 Dose: 5 mg Documented by: Metformin HCl (Metformin Xr 500mg Tab) 500 mg PO BIDDIAB [facility] Last Admin: 07/11/20 09:30 Dose: 500 mg Documented by: Metoprolol Succinate (Metoprolol Succinate Xl 25 Mg Tab) 25 mg PO Q48HR [facility] Last Admin: 07/10/20 11:19 Dose: 25 mg Documented by: Oxycodone/Acetaminophen (Oxycodone /Acetaminophen 5-325mg Tab) 1 tab PO Q6HR PRN PRN Reason: Pain, Moderate (4-6) Last Admin: 07/10/20 21:03 Dose: 1 tab Documented by: Ropinirole HCl (Ropinirole 1 Mg Tab) 4 mg PO BID [facility] Last Admin: 07/11/20 09:33 Dose: 4 mg Documented by: Trazodone HCl (Trazodone 50 Mg Tab) 50 mg PO QHS [facility] Last Admin: 07/10/20 21:03 Dose: 50 mg Documented by: Zolpidem Tartrate (Zolpidem 5 Mg Tab) 5 mg PO QHS PRN PRN Reason: Insomnia Results - Results Labs/Vitals: Laboratory Last Values WBC 8.5 K/mm3 (4.5-11.0) 07/08/20 08:52 RBC 4.82 M/mm3 (3.65-5.03) 07/08/20 08:52 Hgb 15.3 gm/dl (11.8-15.2) H 07/08/20 08:52 Hct 44.3 % (35.5-45.6) 07/08/20 08:52 MCV 92 fl (84-94) 07/08/20 08:52 MCH 32 pg (28-32) 07/08/20 08:52 MCHC 35 % (32-34) H 07/08/20 08:52 RDW 13.6 % (13.2-15.2) 07/08/20 08:52 Plt Count 207 K/mm3 (140-440) 07/08/20 08:52 Lymph % (Auto) 18.5 % (13.4-35.0) 07/08/20 08:52 [place] % (Auto) 8.1 % (0.0-7.3) H 07/08/20 08:52 Eos % (Auto) 1.3 % (0.0-4.3) 07/08/20 08:52 Baso % (Auto) 0.1 % (0.0-1.8) 07/08/20 08:52 Lymph # (Auto) 1.6 K/mm3 (1.2-5.4) 07/08/20 08:52 [place] # (Auto) 0.7 K/mm3 (0.0-0.8) 07/08/20 08:52 Eos # (Auto) 0.1 K/mm3 (0.0-0.4) 07/08/20 08:52 Baso # (Auto) 0.0 K/mm3 (0.0-0.1) 07/08/20 08:52 Seg Neutrophils % 72.0 % (40.0-70.0) H 07/08/20 08:52 Seg Neutrophils # 6.1 K/mm3 (1.8-7.7) 07/08/20 08:52 Sodium 136 mmol/L (137-145) L 07/08/20 08:52 Potassium 4.6 mmol/L (3.6-5.0) 07/08/20 08:52 Chloride 98.8 mmol/L (98-107) 07/08/20 08:52 Carbon Dioxide 29 mmol/L (22-30) 07/08/20 08:52 Anion Gap 13 mmol/L 07/08/20 08:52 BUN 14 mg/dL (9-20) 07/08/20 08:52 Creatinine 0.9 mg/dL (0.8-1.3) 07/08/20 08:52 Estimated GFR > 60 ml/min 07/08/20 08:52 BUN/Creatinine Ratio 16 % 07/08/20 08:52 Glucose 177 mg/dL (75-100) H 07/08/20 08:52 POC Glucose 131 mg/dL (70-105) H 07/11/20 06:27 Hemoglobin A1c 6.7 % (4-6) H 07/08/20 08:52 Calcium 9.0 mg/dL (8.4-10.2) 07/08/20 08:52 Total Bilirubin 0.60 mg/dL (0.1-1.2) 07/08/20 08:52 AST 28 units/L (5-40) 07/08/20 08:52 ALT 35 units/L (7-56) 07/08/20 08:52 Alkaline Phosphatase 79 units/L (35-129) 07/08/20 08:52 Total Protein 6.9 g/dL (6.3-8.2) 07/08/20 08:52 Albumin 3.8 g/dL (3.9-5) L 07/08/20 08:52 Albumin/Globulin Ratio 1.2 % 07/08/20 08:52 Triglycerides 319 mg/dL (2-149) H 07/08/20 08:52 Cholesterol 118 mg/dL (50-199) 07/08/20 08:52 LDL Cholesterol Direct 55 mg/dL (50-130) 07/08/20 08:52 HDL Cholesterol 38 mg/dL (40-59) L 07/08/20 08:52 Cholesterol/HDL Ratio 3.10 % 07/08/20 08:52 Vitamin B12 1097 pg/mL (211-911) H 07/08/20 08:52 TSH 1.390 mlU/mL (0.270-4.200) 07/08/20 08:52 Last Vital Signs Temp 97.7 F 07/11/20 08:38 Pulse 82 07/11/20 08:38 Resp 18 07/11/20 08:38 BP 139/71 07/11/20 08:38 Pulse Ox 94 07/11/20 08:38
[2020-07-11] MEDS: traZODone 50 MG TAB PO SCH (21:19)
[2020-07-11] MEDS: oxyCODONE /ACETAMINOPHEN 5-325MG TAB PO PRN (21:20)
[2020-07-11] MEDS: DONEPEZIL 10 MG TAB PO SCH (21:20)
[2020-07-12] MEDS: INSULIN LISPRO 100 UNIT/ML SUB-Q SCH (08:17)
[2020-07-12] MEDS: metFORMIN XR 500MG TAB PO SCH (08:24)
--- NOTE | 2020-07-12 09:20 | Discharge Summary ---
Providers - Providers Date of Admission: 07/07/20 23:44 Date of discharge: 07/12/20 Attending physician: MARCUS GREGORIO MD 07/07/20 21:19 Consult to Physician [CONS] Routine Comment: Consulting Provider: WESLEY GLASGOW Physician Instructions: Reason For Exam: med mgt Primary care physician: CAN TESTER Hospitalization Reason for admission: depression, SI Admitting Diagnosis: F33.1 - MAJOR DEPRESSIVE DISORDER, RECURRENT, MODERATE Condition: Stable Hospital course: The patient was provided inpatient psychiatric treatment with safe and supportive care, medication adjustment, adverse effect monitoring, medical evaluations, medical treatments, assessment and psycho-education. The patient's mood, cognition, behavior, moral support are improved and stabilized. St the time of discharge, the patient had no endangering behavior and no debilitating adverse effects. The patient agreed on potential consequences of no treatment and gave informed consent. Disposition: DC- TO HOME OR SELFCARE Time spent for discharge: 28 Allergies/Adverse Reactions: Allergies No Known Allergies Allergy (Verified 07/07/20 18:26) Vital Signs: Last Vital Signs Temp 98.6 F 07/11/20 22:00 Pulse 67 07/11/20 22:00 Resp 15 07/11/20 22:00 BP 148/65 07/11/20 22:00 Pulse Ox 95 07/11/20 22:00 Last Lab: Laboratory Last Values WBC 8.5 K/mm3 (4.5-11.0) 07/08/20 08:52 RBC 4.82 M/mm3 (3.65-5.03) 07/08/20 08:52 Hgb 15.3 gm/dl (11.8-15.2) H 07/08/20 08:52 Hct 44.3 % (35.5-45.6) 07/08/20 08:52 MCV 92 fl (84-94) 07/08/20 08:52 MCH 32 pg (28-32) 07/08/20 08:52 MCHC 35 % (32-34) H 07/08/20 08:52 RDW 13.6 % (13.2-15.2) 07/08/20 08:52 Plt Count 207 K/mm3 (140-440) 07/08/20 08:52 Lymph % (Auto) 18.5 % (13.4-35.0) 07/08/20 08:52 [place] % (Auto) 8.1 % (0.0-7.3) H 07/08/20 08:52 Eos % (Auto) 1.3 % (0.0-4.3) 07/08/20 08:52 Baso % (Auto) 0.1 % (0.0-1.8) 07/08/20 08:52 Lymph # (Auto) 1.6 K/mm3 (1.2-5.4) 07/08/20 08:52 [place] # (Auto) 0.7 K/mm3 (0.0-0.8) 07/08/20 08:52 Eos # (Auto) 0.1 K/mm3 (0.0-0.4) 07/08/20 08:52 Baso # (Auto) 0.0 K/mm3 (0.0-0.1) 07/08/20 08:52 Seg Neutrophils % 72.0 % (40.0-70.0) H 07/08/20 08:52 Seg Neutrophils # 6.1 K/mm3 (1.8-7.7) 07/08/20 08:52 Sodium 136 mmol/L (137-145) L 07/08/20 08:52 Potassium 4.6 mmol/L (3.6-5.0) 07/08/20 08:52 Chloride 98.8 mmol/L (98-107) 07/08/20 08:52 Carbon Dioxide 29 mmol/L (22-30) 07/08/20 08:52 Anion Gap 13 mmol/L 07/08/20 08:52 BUN 14 mg/dL (9-20) 07/08/20 08:52 Creatinine 0.9 mg/dL (0.8-1.3) 07/08/20 08:52 Estimated GFR > 60 ml/min 07/08/20 08:52 BUN/Creatinine Ratio 16 % 07/08/20 08:52 Glucose 177 mg/dL (75-100) H 07/08/20 08:52 POC Glucose 99 mg/dL (70-105) 07/12/20 06:11 Hemoglobin A1c 6.7 % (4-6) H 07/08/20 08:52 Calcium 9.0 mg/dL (8.4-10.2) 07/08/20 08:52 Total Bilirubin 0.60 mg/dL (0.1-1.2) 07/08/20 08:52 AST 28 units/L (5-40) 07/08/20 08:52 ALT 35 units/L (7-56) 07/08/20 08:52 Alkaline Phosphatase 79 units/L (35-129) 07/08/20 08:52 Total Protein 6.9 g/dL (6.3-8.2) 07/08/20 08:52 Albumin 3.8 g/dL (3.9-5) L 07/08/20 08:52 Albumin/Globulin Ratio 1.2 % 07/08/20 08:52 Triglycerides 319 mg/dL (2-149) H 07/08/20 08:52 Cholesterol 118 mg/dL (50-199) 07/08/20 08:52 LDL Cholesterol Direct 55 mg/dL (50-130) 07/08/20 08:52 HDL Cholesterol 38 mg/dL (40-59) L 07/08/20 08:52 Cholesterol/HDL Ratio 3.10 % 07/08/20 08:52 Vitamin B12 1097 pg/mL (211-911) H 07/08/20 08:52 TSH 1.390 mlU/mL (0.270-4.200) 07/08/20 08:52 Core Measure Documentation - Palliative Care Palliative Care/ Comfort Measures: Not Applicable - Core Measures Any of the following diagnoses?: none Exam - Constitutional Vitals: Temp Pulse Resp BP Pulse Ox 98.6 F 67 15 148/65 95 07/11/20 22:00 07/11/20 22:00 07/11/20 22:00 07/11/20 22:00 07/11/20 22:00 General appearance: Present: no acute distress - EENT Eyes: Present: PERRL, EOM intact ENT: hearing intact, clear oral mucosa - Neck Neck: Present: supple, normal ROM - Respiratory Respiratory effort: normal Plan Activity: advance as tolerated Weight Bearing Status: Weight Bear as Tolerated Care Plan Goals: Maintain good and stable mental health Plan of Treatment: The patient should be compliant with medications, not to use drugs, and not to drink alcohol. The patient understands that if suicidal ideas, homicidal ideas or any endangering feeling arise, the patient should seek assistance including, but not limited to crisis hotline, and emergency room. Health Concerns: HTN, DM Assessment: MDD Follow up with: PRIMARY CARE, [Primary Care Provider] - 7 Days Prescriptions: Melatonin [Melatonin 5MG TAB] 5 mg PO QHS PRN #30 tablet PRN Reason: Sleep [place]-3 Fatty Acids/Fish Oil [Fish Oil] 2,000 mg PO BID #120 capsule FLUoxetine [PROzac] 20 mg PO QDAY #30 capsule
[2020-07-12 10:36] VITALS: BP 107/55
[2020-07-12] MEDS: OMEGA-3 FATTY ACIDS/FISH OIL 1 GRAM CAP PO SCH (10:36)
[2020-07-12] MEDS: hydroCHLOROthiazide 25 MG TAB PO SCH (10:36)
[2020-07-12] MEDS: ASPIRIN EC 81 MG TAB PO SCH (10:37)
[2020-07-12] MEDS: rOPINIRole 1 MG TAB PO SCH (10:37)
[2020-07-12] MEDS: METOPROLOL SUCCINATE XL 25 MG TAB PO SCH (10:37)
[2020-07-12] MEDS: FLUoxetine 20 MG CAP PO SCH (10:37)
[2020-07-12] MEDS: CYANOCOBALAMIN (VIT B-12) 1000 MCG TAB PO SCH (10:37)
[2020-07-12] MEDS: GLIMEPIRIDE 2 MG TAB PO SCH (10:37)
== END 2020-07-12 15:35 | disposition home or self-care (01) | DRG 885 ==
LOC: 3A 18:22 → UNDOADMIN 18:22 → 5A 23:44
PROVIDERS: ADMIT Psychiatry & Neurology Psychiatry; ATTEND Psychiatry & Neurology Psychiatry
DX: F33.1 Major depressive disorder, recurrent, moderate (principal); F41.9 Anxiety disorder, unspecified; I10 Essential (primary) hypertension; G47.33 Obstructive sleep apnea (adult) (pediatric); E11.9 Type 2 diabetes mellitus without complications; G89.29 Other chronic pain; Z79.899 Other long term (current) drug therapy; I25.10 Atherosclerotic heart disease of native coronary artery without angina pectoris; Z79.82 Long term (current) use of aspirin; Z79.84 Long term (current) use of oral hypoglycemic drugs
CPT/HCPCS: 36415; 80053; 80061; 82607; 82962; 83036; 84443; 85025; G0378; A9270-GY; J1815